=== PATIENT | male | born 1955 | race African-American/Black ===

== ENCOUNTER → 2021-06-24 | Day surgery (SDC) | payer OTHER | LOC: SURG 13:04 | PROVIDERS: ATTEND Anesthesiology | DX: M54.16 Radiculopathy, lumbar region (principal); M54.5 Low back pain; M54.2 Cervicalgia; E11.9 Type 2 diabetes mellitus without complications; F41.9 Anxiety disorder, unspecified; M19.90 Unspecified osteoarthritis, unspecified site; F17.210 Nicotine dependence, cigarettes, uncomplicated; Z79.899 Other long term (current) drug therapy; Z98.890 Other specified postprocedural states | CPT/HCPCS: 99204; G0463 ==

== ENCOUNTER → 2021-07-15 | Day surgery (SDC) | payer OTHER ==
[~2021-07-15] MED LIST: 0.9 % SODIUM CHLORIDE 10 ML VIAL. ONE; BUPIVACAINE MPF 0.25% 30 ML VIAL. ONE; DEXAMETHASONE SOD PHOS 20 MG/5 ML VIAL. ONE; LIDOCAINE 1% PF 30 ML VIAL. ONE
[2021-07-15 10:28] VITALS: BP 138/57
== END | disposition home or self-care (01) ==
LOC: SURG 09:15
PROVIDERS: ATTEND Anesthesiology
DX: M47.26 Other spondylosis with radiculopathy, lumbar region (principal); M54.50 Low back pain, unspecified; Z71.82 Exercise counseling; E11.9 Type 2 diabetes mellitus without complications; M19.90 Unspecified osteoarthritis, unspecified site; F41.9 Anxiety disorder, unspecified; Z79.899 Other long term (current) drug therapy
CPT/HCPCS: 62323; 82947; J1100; J3490

== ENCOUNTER → 2021-08-12 | Day surgery (SDC) | payer OTHER ==
[2021-08-12 10:05] VITALS: BP 125/79
== END | disposition home or self-care (01) ==
LOC: SURG 09:57
PROVIDERS: ATTEND Anesthesiology
DX: M47.26 Other spondylosis with radiculopathy, lumbar region (principal); M25.561 Pain in right knee; E11.9 Type 2 diabetes mellitus without complications; M19.90 Unspecified osteoarthritis, unspecified site; F41.9 Anxiety disorder, unspecified; Z98.890 Other specified postprocedural states
CPT/HCPCS: 99214; G0463

== ENCOUNTER → 2021-09-10 | Day surgery (SDC) | payer OTHER ==
[~2021-09-10] MED LIST changes: -BUPIVACAINE MPF 0.25% 30 ML VIAL. ONE; +DEXAMETHASONE SOD PHOS 10 MG/ML VIAL. ONE; -DEXAMETHASONE SOD PHOS 20 MG/5 ML VIAL. ONE; +IOHEXOL 300 MG/ML 50 ML VIAL. ONE
[2021-09-10 12:53] VITALS: BP 141/98
== END ==
LOC: SURG 11:50
PROVIDERS: ATTEND Anesthesiology
DX: M54.16 Radiculopathy, lumbar region (principal); G89.29 Other chronic pain; E11.9 Type 2 diabetes mellitus without complications; M19.90 Unspecified osteoarthritis, unspecified site; F41.9 Anxiety disorder, unspecified; Z98.890 Other specified postprocedural states; Z79.899 Other long term (current) drug therapy
CPT/HCPCS: 62323; A4209; A4657; A4930; J1100; Q9967